=== PATIENT | female | born 1995 | race American Indian/Alaskan Native ===

== ENCOUNTER 2020-05-05 20:03 | Outpatient (CLI) | payer MEDICAID ==
[2020-05-05 22:48] VITALS: BP 113/58
== END 2020-05-05 23:00 | disposition home or self-care (01) ==
LOC: TRG 20:03 → APU 20:04 → TRG 23:00
PROVIDERS: ATTEND Obstetrics & Gynecology
DX: O47.1 False labor at or after 37 completed weeks of gestation (principal); Z3A.39 39 weeks gestation of pregnancy
CPT/HCPCS: 59025

== ENCOUNTER 2020-05-06 18:28 | Outpatient (CLI) | payer MEDICAID ==
[2020-05-06 19:33] VITALS: BP 113/70
[2020-05-06] MEDS ORDERED: ACETAMINOPHEN W/CODEINE 300-30 MG TAB PO ONE (21:00)
== END 2020-05-06 20:30 | disposition home or self-care (01) ==
LOC: TRG 18:28 → APU 18:30 → TRG 20:30
PROVIDERS: ATTEND Obstetrics & Gynecology
DX: O47.1 False labor at or after 37 completed weeks of gestation (principal); Z3A.39 39 weeks gestation of pregnancy
CPT/HCPCS: 59025